=== PATIENT | male | born 1990 | race American Indian/Alaskan Native ===

== ENCOUNTER 2018-04-29 11:11 | Outpatient (CLI) | payer OTHER ==
--- NOTE | 2018-04-29 13:14 | XRay Report ---
ROUTINE CHEST, TWO VIEWS: HISTORY: Disability exam, PTSD, asthma, allergies. The trachea, heart, mediastinal contour, lung martinez and bony thorax are unremarkable. IMPRESSION: Unremarkable chest x-ray.
== END 2018-04-29 11:12 | disposition home or self-care (01) ==
LOC: PF 11:11
PROVIDERS: ATTEND Internal Medicine
DX: J45.909 Unspecified asthma, uncomplicated (principal); F43.10 Post-traumatic stress disorder, unspecified; G47.30 Sleep apnea, unspecified
CPT/HCPCS: 71046; 94010